=== PATIENT | male | born 1990 | race African-American/Black ===

== ENCOUNTER 2024-11-12 14:51 | Inpatient (IN) | payer OTHER ==
[2024-11-12 15:16] VITALS: BMI 19.5
[2024-11-12] MEDS ORDERED: BENZONATATE 200 MG CAPSULE PO PRN (16:38)
[2024-11-12] MEDS ORDERED: BENZOCAINE/MENTHOL (CHLORASEPTIC ) LOZENGE MM PRN (16:38)
[2024-11-12] MEDS ORDERED: hydrOXYzine PAMOATE 25 MG CAPSULE (FP) PO PRN (16:38)
[2024-11-12] MEDS ORDERED: guaiFENesin 600 MG TABLET.ER (FP) PO PRN (16:38)
[2024-11-12] MEDS ORDERED: NALOXONE (NARCAN) HCL 4 MG/0.1 ML SPRAY NS PRN (16:38)
[2024-11-12] MEDS ORDERED: POLYETHYLENE GLYCOL (HEALTHYLAX) 3350 17 GM PACKET PO PRN (16:38)
[2024-11-12] MEDS ORDERED: IBUPROFEN 400 MG TABLET (FP) PO PRN (16:38)
[2024-11-12] MEDS ORDERED: NICOTINE POLACRILEX 2 MG GUM BUC PRN (16:38)
[2024-11-12] MEDS ORDERED: IBUPROFEN 600 MG TABLET (FP) PO PRN (16:38)
[2024-11-12] MEDS: MIRTAZAPINE 15 MG TABLET (FP) PO SCH (21:30)
[2024-11-12] MEDS: MELATONIN 5 MG TABLETS PO SCH (21:30)
[2024-11-12] MEDS: THIAMINE 100 MG TABLET PO SCH (21:30)
[2024-11-13] MEDS: risperiDONE 1 MG TABLET PO SCH (09:02)
[2024-11-13] MEDS: NICOTINE 7 MG/24 HOURS TOPICAL PATCH TD SCH (09:02)
[2024-11-13] MEDS: PRENATAL VITAMINS W/ FOLIC ACID TABLET (FP) PO SCH (09:02)
[2024-11-13] MEDS: NALTREXONE HCL 50 MG TABLET PO ONE (09:03)
[2024-11-13] MEDS: TUBERCULIN PPD 5 TU/0.1ML VIAL ID ONE (09:06)
[2024-11-13 11:41] LABS: HEMATOCRIT 44.6 % (40.1-51.0); HEMOGLOBIN 14.6 g/dL (13.7-17.5); MCHC 32.7 g/dl (32.3-36.5); MEAN CELL VOLUME 88.7 fl (79.0-92.2); MEAN PLT VOLUME 10.2 fl (9.4-12.4); PLATELET COUNT 312 x10^3/uL (163-337); RDW 12.3 % (12.0-15.6)
[2024-11-13 12:25] LABS: CHLORIDE 108 mmol/L (98-107); POTASSIUM 4.2 mmol/L (3.5-5.1); SODIUM 142 mmol/L (136-145)
[2024-11-13 12:32] LABS: ALBUMIN 3.4 g/dl (3.4-5.0); ANION GAP 8 mmol/L (4-13); CALCIUM 9.5 mg/dL (8.5-10.1); CO2 26 mmol/L (21-32); GLUCOSE,RANDOM 89 mg/dL (74-106)
[2024-11-13 12:33] LABS: BLOOD UREA NITROGEN 22.5 mg/dL (7-18)
[2024-11-13 12:35] LABS: CREATININE 0.8 mg/dL (0.55-1.3); SGOT/AST 22 U/L (15-37); SGPT/ALT 25 U/L (13-61)
[2024-11-13 12:36] LABS: BILIRUBIN,TOTAL 0.2 mg/dL (0.2-1)
[2024-11-13 12:37] LABS: ALK PHOS 98 U/L (45-117); TOT PROT 6.9 g/dl (6.4-8.2)
[2024-11-13 13:05] LABS: SYPHILIS W/ RPR CONF REACTIVE (NONREACTIVE)
[2024-11-13 13:08] LABS: HIV INTERPRETATION NEGATIVE (NEGATIVE)
[2024-11-13 13:12] LABS: HCV DIAGNOSTIC IN-HOUSE W/RFLX REACTIVE (NONREACTIVE)
[2024-11-13] MEDS: ACETAMINOPHEN 325 MG TABLET (FP) PO PRN (19:05)
[2024-11-14] MEDS: MAG HYDROX/AL HYDROX/SIMETH 30 ML UNIT-DOSE CUP PO PRN (06:23)
[2024-11-14] MEDS: NALTREXONE HCL 50 MG TABLET PO SCH (09:06)
[2024-11-14] MEDS: LOPERAMIDE HCL 2 MG CAPSULE PO PRN (10:36)
[2024-11-14] MEDS ORDERED: ONDANSETRON *ODT* 4 MG TABLET SL PRN (10:58)
[2024-11-14] MEDS: PENICILLIN G BENZATHINE 2,400,000 UNIT/4 ML PFS IM ONE (13:13)
[2024-11-14 17:02] LABS: URINE APPEARANCE CLEAR; URINE BILIRUBIN NEGATIVE (NEGATIVE); URINE COLOR YELLOW; URINE GLUCOSE (UA) NEGATIVE (NEGATIVE); URINE KETONE NEGATIVE (NEGATIVE); URINE LEUK ESTERASE NEGATIVE (NEGATIVE); URINE NITRITE NEGATIVE (NEGATIVE); URINE PROTEIN NEGATIVE (NEGATIVE); URINE UROBILINOGEN 0.2 mg/dL (0.2-1.0)
[2024-11-20 06:28] VITALS: BP 100/69; PULSE 98; RESP 20; TEMP 97.7
[2024-11-20] MEDS: MAGNESIUM HYDROX 2400MG/30ML ORAL SUSPENSION 30 ML CUP PO PRN (11:32)
[2024-11-21] MEDS ORDERED: PENICILLIN G BENZATHINE 2,400,000 UNIT/4 ML PFS IM ONE (10:00)
[2024-11-28] MEDS ORDERED: PENICILLIN G BENZATHINE 2,400,000 UNIT/4 ML PFS IM ONE (10:00)
== END 2024-11-20 15:25 | disposition left against medical advice (07) | DRG 770 ==
LOC: YASAS 14:51 → Y3E 16:57
PROVIDERS: ADMIT Psychiatry & Neurology Pain Medicine; ATTEND Allergy & Immunology
PROC: HZ42ZZZ Group Counseling for Substance Abuse Treatment, Cognitive-Behavioral (ICD-10-PCS; principal; 2024-11-12)
DX: F10.20 Alcohol dependence, uncomplicated (principal); F14.20 Cocaine dependence, uncomplicated; F15.20 Other stimulant dependence, uncomplicated; F12.10 Cannabis abuse, uncomplicated; F17.210 Nicotine dependence, cigarettes, uncomplicated; F25.9 Schizoaffective disorder, unspecified; F31.9 Bipolar disorder, unspecified; F60.2 Antisocial personality disorder; F19.24 Other psychoactive substance dependence with psychoactive substance-induced mood disorder; J45.909 Unspecified asthma, uncomplicated; Z87.820 Personal history of traumatic brain injury; Z88.8 Allergy status to other drugs, medicaments and biological substances; Z88.0 Allergy status to penicillin
CPT/HCPCS: 36415; 80053; 80305; 80307; 81003; 82962; 85027; 86480; 86593; 86780; 86803; 87389; 87522; 87811; 93005; 93010